=== PATIENT | male | born 1955 | race Caucasian/White ===

== ENCOUNTER 2018-05-02 12:17 | Observation (INO) ==
[2018-05-02] MEDS ORDERED: Sod Chloride 0.9% Inj 1,000 ML IV.SIG ONE (14:14)
[2018-05-02 14:45] LABS: Baso # (Auto) 0.1 th/mm3 (0.0-0.2); Baso % (Auto) 0.6 % (0.0-2.0); Eos # (Auto) 0.1 th/mm3 (0.0-0.4); Eos % (Auto) 0.8 % (0.0-4.0); Hematocrit 41.6 % (39.0-51.0); Lymph % (Auto) 9.4 % (9.0-44.0); Mean Corpuscular HGB Conc 33.6 % (32.0-36.0); Mean Corpuscular Hemoglobin 29.1 pg (27.0-34.0); Mean Corpuscular Volume 86.5 fL (80.0-100.0); Mean Platelet Volume 8.7 fL (7.0-11.0); Mono # (Auto) 0.5 th/mm3 (0.0-0.9); Mono % (Auto) 5.1 % (0.0-8.0); Neut # (Auto) 8.5 th/mm3 (1.8-7.7); Neut % (Auto) 84.1 % (16.0-70.0); Platelet Count 224 th/mm3 (150-450); Red Blood Count 4.81 mil/mm3 (4.50-5.90); Red Cell Distribution Width 14.2 % (11.6-17.2); White Blood Count 10.1 th/mm3 (4.0-11.0)
[2018-05-02 15:03] LABS: Alanine Aminotransferase 18 U/L (12-78); Albumin 4.6 g/dL (3.4-5.0); Anion Gap 10 meq/L (5-15); Aspartate Aminotransferase 16 U/L (15-37); Blood Urea Nitrogen 11 mg/dL (7-18); Carbon Dioxide 28.2 meq/L (21.0-32.0); Chloride 106 meq/L (98-107); Glomerular Filtration Rate 77 mL/min (>89); Glucose,Random 90 mg/dL (74-106); Potassium 3.9 meq/L (3.5-5.1); Sodium 144 meq/L (136-145)
[2018-05-02 15:07] LABS: Alkaline Phosphatase 76 U/L (45-117); Total Protein 8.1 g/dL (6.4-8.2)
--- NOTE | 2018-05-02 15:09 | CT ---
EXAM DATE: 05/02/2018 2:19 PM EDT AGE/SEX: 63 years / Male INDICATIONS: Fell from a ladder about four feet syncope after fall CLINICAL DATA: This is the patient's initial encounter. Patient reports that signs and symptoms have been present for 1 day and indicates a pain score of 5/10. MEDICAL/SURGICAL HISTORY: Cardiovascular disease. Coronary artery stent. RADIATION DOSE: 34.35 CTDI (mGy) COMPARISON: No prior exams available for comparison. TECHNIQUE: CT of the head without contrast. Using automated exposure control and adjustment of the mA and/or kV according to patient size, radiation dose was kept as low as reasonably achievable to ob tain optimal diagnostic quality images. DICOM format image data is available electronically for revi ew and comparison. FINDINGS: Cerebrum: The ventricles are normal for age. No evidence of midline shift, mass lesion, hemorrhage or acute infarction. No extraaxial fluid collections are seen. Posterior Fossa: The cerebellum and brainstem are intact. The 4th ventricle is midline. The cerebe llopontine angle is unremarkable. Extracranial: The visualized portion of the orbits is intact. Skull: The calvaria is intact. No evidence of skull fracture. CONCLUSION: 1. Negative noncontrast trauma CT. . Electronically signed by: Sal Cordero MD 05/02/2018 3:08 PM EDT
[2018-05-02 15:10] LABS: Activated Partial Thrombo Time 22.5 sec (24.3-30.1); INR 1.1 Ratio
--- NOTE | 2018-05-02 15:15 | CT ---
EXAM DATE: 05/02/2018 2:40 PM EDT AGE/SEX: 63 years / Male INDICATIONS: Fall from ladder syncope after fall CLINICAL DATA: This is the patient's initial encounter. Patient reports that signs and symptoms have been present for 1 day and indicates a pain score of 5/10. MEDICAL/SURGICAL HISTORY: Cardiovascular disease. Coronary artery stent. RADIATION DOSE: 24.67 CTDI (mGy) COMPARISON: No prior exams available for comparison. TECHNIQUE: Contiguous axial images were obtained using helical multirow detector technique. The vol umetric data was post-processed with multiplanar reconstruction in oblique axial, sagittal, and coron al planes. Using automated exposure control and adjustment of the mA and/or kV according to patient s ize, radiation dose was kept as low as reasonably achievable to obtain optimal diagnostic quality giovanni ges. DICOM format image data is available electronically for review and comparison. FINDINGS: No acute fracture or prevertebral soft tissue swelling is noted. Mild cervical spondylosis is noted a t all levels. Mild bilateral foraminal narrowing is noted from C2 through C7. No spinal stenosis is n oted. C2-3: The bony spinal canal is normal in size. No evidence of disc bulge or herniation. Mild bilate ral foraminal narrowing is noted. C3-4: The bony spinal canal is normal in size. No evidence of disc bulge or herniation. Mild bilate ral foraminal narrowing is noted. C4-5: The bony spinal canal is normal in size. No evidence of disc bulge or herniation. Mild bilate ral foraminal narrowing is noted. C5-6: The bony spinal canal is normal in size. No evidence of disc bulge or herniation. Mild bilate ral foraminal narrowing is noted. C6-7: The bony spinal canal is normal in size. No evidence of disc bulge or herniation. Mild bilate ral foraminal narrowing is noted. C7-T1: The bony spinal canal is normal in size. No evidence of disc bulge or herniation. The neura l foramina are bilaterally patent. CONCLUSION: 1. No acute fracture or prevertebral soft tissue swelling. 2. Mild bilateral foraminal narrowing from C2 through C7. Electronically signed by: Rodriguez Yeager MD 05/02/2018 3:14 PM EDT
--- NOTE | 2018-05-02 15:32 | ED ---
HPI General Chief Complaint: Syncope Stated Complaint: fall,right wrist pain Time Seen by Provider: 05/02/18 14:09 Source: patient and family Mode of arrival: ambulatory Limitations: no limitations History of Present Illness HPI narrative: Patient is a 63-year-old male that presents for the evaluation of fall and syncopal episode that occurred today. The patient states that he was doing some yard work earlier today and he was using a 6 foot ladder to trim trees. The patient states that the ladder suddenly became unstable and he and the ladder fell over. The patient states that he fell on top of the ladder. The patient currently reports pain in both his right wrist and lower back. The patient states that his current pain level in his right wrist is a 6/10 on a pain scale. He states that the wrist is becoming swollen and more painful than when he initially injured it. He currently rates his low back pain a 5/10 on a pain scale. The patient's family is present in the room. The patient's daughter states that the patient had a syncopal episode as he was walking back into the house. The patient's daughter states that their neighbor witnessed the syncopal episode and reported that the patient was unresponsive for 1-1.5 minutes. The patient does not remember passing out but he does remember his fall from the ladder. The patient is not sure if he hit his head during the fall. Upon review of symptoms the patient reports fatigue and more yawing than usual. He denies chest pain, shortness of breath, dizziness, nausea, or vomiting. Related Data Home Medications Medication Instructions Recorded Confirmed aspirin [Aspir-81] 81 mg PO DAILY 05/02/18 05/02/18 Allergies Allergy/AdvReac Type Severity Reaction Status Date / Time No Known Allergies Allergy Unverified 05/02/18 14:16 Review of Systems ROS: all other systems reviewed are negative [facility] Medical History Medical History FH: total knee replacement (Acute) Surgical History Surgical History H/O heart artery stent (Acute) Family History Family History Other Hypertension Social History Social History Substance History: No History of Abuse Second Hand Smoke Exposure: No Smoking Status: Never smoker How Often Do You Have a Drink Containing Alcohol: Never Recent Travel in [facility] within the Last 8 Weeks: No Recent Out of Country Travel within the Last 8 Weeks: No Immunization History Tetanus Immunization: <5 Years Hx Influenza Vaccine This Season: No Exam Narrative Exam Narrative: GENERAL: Well appearing SKIN: Focused skin assessment warm/dry. HEAD: Atraumatic. Normocephalic. EYES: Pupils equal and round. No scleral icterus. No injection or drainage. ENT: No nasal bleeding or discharge. Mucous membranes pink and moist. Tongue is midline. No uvula deviation. NECK: Trachea midline. No JVD. CARDIOVASCULAR: Regular rate and rhythm. No murmur appreciated. RESPIRATORY: No accessory muscle use. Clear to auscultation. Breath sounds equal bilaterally. GASTROINTESTINAL: Abdomen soft, non-tender, nondistended. Hepatic and splenic margins not palpable. MUSCULOSKELETAL: No obvious deformities. No clubbing. No cyanosis. No edema. Full range of motion of the upper and lower extremities bilaterally. Patient does have obvious deformity to the right wrist. Tender to touch in this area. 2+ pulses in the radial and ulnar arteries. Able to move the hand and fingers bilaterally. No obvious lumbar, thoracic, cervical spine tenderness to palpation. Patient does have tenderness to palpation on the musculature of the right lower back. More on the buttocks than the actual spine. Able to move the legs fully and straight leg negative bilaterally. No obvious open sores. He does have what appears to be an abrasion to the posterior aspect of the right shoulder. NEUROLOGICAL: Awake and alert. No obvious cranial nerve deficits. Motor grossly within normal limits. Normal speech. PSYCHIATRIC: Appropriate mood and affect; insight and judgment normal. Course Initial Documented Vital Signs Temperature 97.9 F 05/02/18 12:21 Pulse Rate 52 L 05/02/18 12:21 Respiratory Rate 16 05/02/18 12:21 Blood Pressure 120/64 05/02/18 12:21 Pulse Oximetry 98 05/02/18 12:21 Last Documented Vital Signs Temperature 97.9 F 05/02/18 12:21 Pulse Rate 45 L 05/02/18 14:17 Respiratory Rate 18 05/02/18 14:17 Blood Pressure 128/72 05/02/18 14:17 Pulse Oximetry 100 05/02/18 14:17 Medical Decision Making WILFRIDO Attestation WILFRIDO supervised visit: Yes Attestation: I, Dr. Scott, have reviewed the advance practice practitioner's documentation and am in agreement, met with the patient face to face, made the diagnosis, and the medical decision making was done by me. *My assessment and Findings: [Patient is a 63-year-old male who presented to emergency room for evaluation of syncope and fall. patient was admitted to the hospital, I agree with mid-level evaluation and disposition.] MDM Narrative Medical decision making narrative: 63-year-old male the presents to the ED for evaluation of syncope and fall. Patient was properly examined and was found to have signs and symptoms concerning for syncope and fractures. Patient denies any his head on the initial fall. He did had a syncopal episode after the fall. Per patient he was up and he fell but he does not remember really what happened. No history of this in the past but he does have a history of stents in the past. Definetly concern for cardiac in nature. Labs and imaging were ordered. Labs and imaging were essentially unremarkable other than for what appears to be fracture of the right wrist. Unclear as to the syncopal episode but definitely concern. The recommend admission for further evaluation as patient has never had syncope workup in the past. Splint was placed on the wrist. Labs and imaging were essentially unremarkable other than stated above. Case discussed with family and patient agree with admission. Patient will be admitted for further evaluation of the syncope as patient is somewhat bradycardic. There is concern for cardiac disease. Patient agrees with this plan. Case discussed with Dr. Hearn who agrees admission to his service. Medical Screen Exam Complete: Yes Emergency Medical Condition: Yes Differential Diagnosis Differential Diagnosis: Syncope versus presyncope versus fall versus fracture versus head injury Medical Records Medical records reviewed: Yes I reviewed the patient's medical records. Lab Data Lab results reviewed: Yes I reviewed the patient's lab results. Lab results narrative: Troponin and CK-MB negative. Result diagrams: 05/02/18 14:30 05/02/18 14:30 Lab Results 05/02/18 05/02/18 05/02/18 Range/Units 14:30 14:30 14:30 WBC 10.1 (4.0-11.0) th/mm3 RBC 4.81 (4.50-5.90) mil/mm3 Hgb 14.0 (13.0-17.0) gm/dL Hct 41.6 (39.0-51.0) % MCV 86.5 (80.0-100.0) fL MCH 29.1 (27.0-34.0) pg MCHC 33.6 (32.0-36.0) % RDW 14.2 (11.6-17.2) % Plt Count 224 (150-450) th/mm3 MPV 8.7 (7.0-11.0) fL Neut % (Auto) 84.1 H (16.0-70.0) % Lymph % (Auto) 9.4 (9.0-44.0) % Meagher % (Auto) 5.1 (0.0-8.0) % Eos % (Auto) 0.8 (0.0-4.0) % Baso % (Auto) 0.6 (0.0-2.0) % Neut # (Auto) 8.5 H (1.8-7.7) th/mm3 Lymph # (Auto) 1.0 (1.0-4.8) th/mm3 Meagher # (Auto) 0.5 (0.0-0.9) th/mm3 Eos # (Auto) 0.1 (0.0-0.4) th/mm3 Baso # (Auto) 0.1 (0.0-0.2) th/mm3 WBC Differential . Differential Comment Auto diff final PT 11.0 (9.8-11.6) sec INR 1.1 Ratio APTT 22.5 L (24.3-30.1) sec Sodium 144 (136-145) meq/L Potassium 3.9 (3.5-5.1) meq/L Chloride 106 (98-107) meq/L Carbon Dioxide 28.2 (21.0-32.0) meq/L Anion Gap 10 (5-15) meq/L BUN 11 (7-18) mg/dL Creatinine 0.98 (0.60-1.30) mg/dL Estimated GFR 77 L (>89) mL/min Random Glucose 90 (74-106) mg/dL Calcium 9.0 (8.5-10.1) mg/dL Total Bilirubin 0.5 (0.2-1.0) mg/dL AST 16 (15-37) U/L ALT 18 (12-78) U/L Alkaline Phosphatase 76 (45-117) U/L Troponin I Less than 0.02 L (0.02-0.05) ng/mL Total Protein 8.1 (6.4-8.2) g/dL Albumin 4.6 (3.4-5.0) g/dL Imaging Data Attestation: I personally reviewed and interpreted this imaging study as follows : Radiologist's impression: Head CT 05/02/18 14:14 CONCLUSION: 1. Negative noncontrast trauma CT. . Hand X-Ray 05/02/18 14:15 CONCLUSION: 1. Mildly comminuted fracture the distal radius. 2. Widening of the scapholunate distance most characteristic with a scapholunate ligament tear. 3. Osteopenia and mild osteoarthritic changes. 4. Small metal foreign bodies adjacent to the third proximal phalanx and fourth middle phalanx. Wrist X-Ray 05/02/18 14:15 CONCLUSION: 1. Fracture of the distal radius. 2. Widening of the scapholunate distance consistent with scapholunate ligament tear. 3. Osteopenia and osteoarthritic change. Cervical Spine CT 05/02/18 14:27 CONCLUSION: 1. No acute fracture or prevertebral soft tissue swelling. 2. Mild bilateral foraminal narrowing from C2 through C7. Lumbar Spine CT 05/02/18 14:45 CONCLUSION: 1. Moderate spinal stenosis and bilateral foraminal narrowing at L4-5 and L3-4. 2. Mild spinal stenosis and bilateral foraminal narrowing at L2-3. 3. Mild bilateral foraminal narrowing at L5-S1 and L1-2 without spinal stenosis. 4. Grade I anterolisthesis of L4 in relation to L5. 5. No acute compression fracture. 6. Scoliosis is noted. ECG Data Attestation: I personally reviewed and interpreted this ECG as follows: Interpretation: EKG sure this sinus rhythm with no sign of acute ischemia but does show what appears to be bradycardia read by me and attending. No ST elevations. Discharge Plan Discharge Disposition Patient Disposition: 30 Still Patient Discharge Details Diagnosis: Syncope, Fracture of wrist, closed Physicians Team ED Provider: Heri Scott ED Midlevel Provider: Dony Chaves Primary Care Provider: Primary Care Physici,No Attending Provider: Mina Hearn Other Providers: John Sepulveda ; Polly Reyes Status ED Status: Left Department Discharge Information Discharge Date/Time: 05/02/18 18:00
--- NOTE | 2018-05-02 15:39 | XR ---
EXAM DATE: 05/02/2018 2:15 PM EDT AGE/SEX: 63 years / Male INDICATIONS: Right lateral hand pain after fall from ladder. CLINICAL DATA: This is the patient's initial encounter. Patient reports that signs and symptoms have been present for 1 day and indicates a pain score of 10/10. MEDICAL/SURGICAL HISTORY: None. None. COMPARISON: No prior exams available for comparison. FINDINGS: AP, lateral and oblique views of the right hand were obtained and demonstrate mildly comminuted fract ure deformity of the distal radius with buckling of the dorsal cortex. The distal ulna is intact. Car pus is intact with widening of the scapholunate distance to approximately 6 mm. There is mild osteope fish. There are degenerative changes throughout the carpus with mild sclerosis. There are metallic for eign bodies adjacent to the third proximal phalanx and fourth middle phalanx. There are mild degenera tive changes in the interphalangeal joints. CONCLUSION: 1. Mildly comminuted fracture the distal radius. 2. Widening of the scapholunate distance most characteristic with a scapholunate ligament tear. 3. Osteopenia and mild osteoarthritic changes. 4. Small metal foreign bodies adjacent to the third proximal phalanx and fourth middle phalanx. Electronically signed by: Sal Cordero MD 05/02/2018 3:37 PM EDT
--- NOTE | 2018-05-02 15:40 | XR ---
EXAM DATE: 05/02/2018 2:15 PM EDT AGE/SEX: 63 years / Male INDICATIONS: Right lateral wrist pain after fall from ladder. CLINICAL DATA: This is the patient's initial encounter. Patient reports that signs and symptoms have been present for 1 day and indicates a pain score of 10/10. MEDICAL/SURGICAL HISTORY: None. None. [place] [facility] 3[place]. . FINDINGS: Multiple views of the right wrist were obtained and again demonstrate the mildly comminuted fracture deformity of the distal radius with buckling of the dorsal cortex. The distal ulna is intact. There i s widening of the scapholunate distance to approximately 6 mm. There is diffuse osteopenia and mild d egenerative changes in the carpus. There is mild soft tissue swelling over the distal radius. There i s mild osteopenia. CONCLUSION: 1. Fracture of the distal radius. 2. Widening of the scapholunate distance consistent with scapholunate ligament tear. 3. Osteopenia and osteoarthritic change. Electronically signed by: Sal Cordero MD 05/02/2018 3:39 PM EDT
--- NOTE | 2018-05-02 15:42 | CT ---
EXAM DATE: 05/02/2018 2:46 PM EDT AGE/SEX: 63 years / Male INDICATIONS: Fall from ladder Back pain CLINICAL DATA: This is the patient's initial encounter. Patient reports that signs and symptoms have been present for 1 day and indicates a pain score of 5/10. MEDICAL/SURGICAL HISTORY: Cardiovascular disease. Coronary artery stent. RADIATION DOSE: 35.86 CTDI (mGy) COMPARISON: [facility] – [place], [place] CERVICAL SPINE W/O CONTRAST, 05/02/2018. . TECHNIQUE: Contiguous axial images were acquired with a multirow detector CT scanner without contras t. Multiplanar reconstructions in the sagittal and coronal plane were also performed. Using automate d exposure control and adjustment of the mA and/or kV according to patient size, radiation dose was k ept as low as reasonably achievable to obtain optimal diagnostic quality images. DICOM format image data is available electronically for review and comparison. FINDINGS: Vertebrae: Normal vertebral body height. No acute compression fracture is noted. Alignment: Grade I anterolisthesis of L4 in relation to L5 is noted. Mild scoliosis is noted. T12-L1: The thecal sac has a normal diameter. No evidence of disc bulge or protrusion. The neural foramina are patent bilaterally. L1-L2: Mild diffuse disc bulge is noted and results in mild bilateral foraminal narrowing but no spi nal stenosis. No focal disc herniation is noted. L2-L3: Mild circumferential spinal stenosis and bilateral foraminal narrowing is noted secondary to diffuse disc bulge, facet joint hypertrophy and ligamentous laxity. No focal disc herniation is noted . L3-L4: Moderate circumferential spinal stenosis and bilateral foraminal narrowing is noted secondary to diffuse disc bulge, facet joint hypertrophy and ligamentous laxity. No focal disc herniation is n oted. L4-L5: Moderate circumferential spinal stenosis and bilateral foraminal narrowing is noted secondary to diffuse disc bulge, grade I anterolisthesis of L4 in relation to L5, facet joint hypertrophy and ligamentous laxity. No focal disc herniation is noted. L5-S1: Mild diffuse disc bulge results in mild bilateral foraminal narrowing but no spinal stenosis. No focal disc herniation is noted. CONCLUSION: 1. Moderate spinal stenosis and bilateral foraminal narrowing at L4-5 and L3-4. 2. Mild spinal stenosis and bilateral foraminal narrowing at L2-3. 3. Mild bilateral foraminal narrowing at L5-S1 and L1-2 without spinal stenosis. 4. Grade I anterolisthesis of L4 in relation to L5. 5. No acute compression fracture. 6. Scoliosis is noted. Electronically signed by: Rodriguez Yeager MD 05/02/2018 3:41 PM EDT
[2018-05-02] MEDS ORDERED: Acetaminophen 325 MG Tablet PO PRN (17:05)
[2018-05-02] MEDS ORDERED: Ibuprofen 600 MG Tablet PO PRN (17:21)
--- NOTE | 2018-05-02 17:21 | P.HP ---
History of Present Illness Primary Care Physician: No Primary Care Physician History of Present Illness: 63-year-old male with a history of coronary artery disease with 2 stents placed presents to the ER following a fall from a 5 foot ladder resulting in a right wrist fracture. He says he was working outside today when one leg of his ladder tipped into soft sound on the side of the sidewalk resulting in him being tipped over on top of the ladder. He denies any head trauma. He fell onto his right wrist, shoulder, back. He had immediate pain in his right wrist and had a grossly visible defect with angulation but no disruption of his skin. ER workup regarding his back pain revealed only degenerative changes but no fractures.. Following the fall he had dizziness followed by unconsciousness for approximately 1.5 minutes according to his family. In the ER he has demonstrated bradycardia with heart rate dipping into the mid 40s. He denies any prior knowledge of bradycardia. Aside from stents placed he has no follow- up with cardiology. He denies any recent illness, denies fevers, denies cough. He denies any nausea, vomiting or dehydration, denies diarrhea. Review of Systems All other systems reviewed negative except as stated in HPI PMFSH - History History Provided By: Patient - Medical History Medical History: Medical History (Last Reviewed 05/02/18 @ 16:11 by JOHN Rodriguez) FH: total knee replacement - Surgical History Surgical History: Surgical History (Last Reviewed 05/02/18 @ 16:11 by JOHN Rodriguez) H/O heart artery stent - Tobacco History Second Hand Smoke Exposure: No Smoking Status: Former smoker - Alcohol History How Often Do You Have a Drink Containing Alcohol: Monthly or less - Substance Use History Substance History: No History of Abuse - Travel History Recent Travel in the [place] Within the Last 8 Weeks: No Recent Travel Out of the Country Within the Last 8 Weeks: No - Immunization History Tetanus Immunization: <5 Years Hx Influenza Vaccine This Season: No Medications and Allergies Active Medications: Active Medications Acetaminophen (Tylenol) 650 mg PO Q4H PRN PRN Reason: Temp > 100.4 Al Hydroxide/Mg Hydroxide (Milk Of Magnesia Liq) 30 ml PO Q12H PRN PRN Reason: Mild Constipation Ondansetron HCl (Zofran Inj) 4 mg IV.PUSH Q6H PRN PRN Reason: NAUSEA OR VOMITING Allergies Allergy/AdvReac Type Severity Reaction Status Date / Time No Known Allergies Allergy Unverified 05/02/18 14:16 Home Medications Medication Instructions Recorded Confirmed Type aspirin [Aspir-81] 81 mg PO DAILY 05/02/18 05/02/18 History Exam Vital signs: Vital Signs 05/02/18 12:21 05/02/18 14:17 Temperature 97.9 F Pulse Rate 52 L 45 L Respiratory Rate 16 18 Blood Pressure 120/64 128/72 Pulse Oximetry 98 100 Intake & Output 05/01/18 05/02/18 05/02/18 18:59 06:59 18:59 Intake Total 1000 / 1000 Balance 1000 / 1000 Weight 92.079 kg Intake: IV 1000 / 1000 NS Inj 1,000 ML @ Wide Open IV. 1000 / 1000 SIG BOLUS ONE Rx#:[id number] Narrative: GENERAL: AAOx3, no acute distress, adequate nutrition SKIN: Warm and dry, no rashes. HEAD: Atraumatic. Normocephalic. EYES: Pupils equal, round, reactive to light. No scleral icterus. No injection or drainage. ENT: No nasal bleeding or discharge. Moist mucous membranes. Nonerythematous oropharynx. NECK: Trachea midline. No JVD. Thyroid size within normal limits. CARDIOVASCULAR: Regular rate and rhythm. No murmur, no gallops, no rubs. RESPIRATORY: Clear and equal to auscultation bilaterally. No crackles, no wheezes. No accessory muscle use. GASTROINTESTINAL: Abdomen soft, non-tender, nondistended, normal active bowel sounds. Hepatic and splenic margins not palpable. MUSCULOSKELETAL: Gross deformity of right wrist with evident bruising and moderate swan-neck deformity of distal arm just proximal to the wrist NEUROLOGICAL: Awake and alert. No obvious cranial nerve deficits. Motor grossly within normal limits. No focal deficits. Five out of 5 muscle strength in the arms and legs. Normal speech. PSYCHIATRIC: Appropriate mood and affect; insight and judgment normal. Results - Labs CBC & Chem 7: 05/02/18 14:30 05/02/18 14:30 Labs: Laboratory Results - last 24 hr 05/02/18 05/02/18 05/02/18 14:30 14:30 14:30 WBC 10.1 RBC 4.81 Hgb 14.0 Hct 41.6 MCV 86.5 MCH 29.1 MCHC 33.6 RDW 14.2 Plt Count 224 MPV 8.7 Neut % (Auto) 84.1 H Lymph % (Auto) 9.4 [place] % (Auto) 5.1 Eos % (Auto) 0.8 Baso % (Auto) 0.6 Neut # (Auto) 8.5 H Lymph # (Auto) 1.0 [place] # (Auto) 0.5 Eos # (Auto) 0.1 Baso # (Auto) 0.1 WBC Differential . Differential Comment Auto diff final PT 11.0 INR 1.1 APTT 22.5 L Sodium 144 Potassium 3.9 Chloride 106 Carbon Dioxide 28.2 Anion Gap 10 BUN 11 Creatinine 0.98 Estimated GFR 77 L Random Glucose 90 Calcium 9.0 Total Bilirubin 0.5 AST 16 ALT 18 Alkaline Phosphatase 76 Troponin I Less than 0.02 L Total Protein 8.1 Albumin 4.6 - Imaging Impressions Head CT 05/02/18 14:14 CONCLUSION: 1. Negative noncontrast trauma CT. . Hand X-Ray 05/02/18 14:15 CONCLUSION: 1. Mildly comminuted fracture the distal radius. 2. Widening of the scapholunate distance most characteristic with a scapholunate ligament tear. 3. Osteopenia and mild osteoarthritic changes. 4. Small metal foreign bodies adjacent to the third proximal phalanx and fourth middle phalanx. Wrist X-Ray 05/02/18 14:15 CONCLUSION: 1. Fracture of the distal radius. 2. Widening of the scapholunate distance consistent with scapholunate ligament tear. 3. Osteopenia and osteoarthritic change. Cervical Spine CT 05/02/18 14:27 CONCLUSION: 1. No acute fracture or prevertebral soft tissue swelling. 2. Mild bilateral foraminal narrowing from C2 through C7. Lumbar Spine CT 05/02/18 14:45 CONCLUSION: 1. Moderate spinal stenosis and bilateral foraminal narrowing at L4-5 and L3-4. 2. Mild spinal stenosis and bilateral foraminal narrowing at L2-3. 3. Mild bilateral foraminal narrowing at L5-S1 and L1-2 without spinal stenosis. 4. Grade I anterolisthesis of L4 in relation to L5. 5. No acute compression fracture. 6. Scoliosis is noted. Caprini VTE Risk Assessment Caprini VTE Risk Assessment: No/Low Risk (score <= 1) Caprini Risk Assessment Model: Point Value = 1 Point Value = 2 Point Value = 3 Point Value = 5 Age 41-60 Minor surgery BMI > 25 kg/m2 Swollen legs Varicose veins or History of unexplained or recurrent spontaneous Oral contraceptives or hormone replacement Sepsis (< 1 month) Serious lung disease, including pneumonia (< 1 month) Abnormal pulmonary function Acute myocardial infarction Congestive heart failure (< 1 month) History of inflammatory bowel disease Medical patient at bed rest Age 61-74 Arthroscopic surgery Major open surgery (> 45 min) Laparoscopic surgery (> 45 min) Malignancy Confined to bed (> 72 hours) Immobilizing plaster cast Central venous access Age >= 75 History of VTE Family history of VTE Factor V Leiden Prothrombin [id number] Lupus anticoagulant Anticardiolipin antibodies Elevated serum homocysteine Heparin-induced thrombocytopenia Other congenital or acquired thrombophilia Stroke (< 1 month) Elective arthroplasty Hip, pelvis, or leg fracture Acute spinal cord injury (< 1 month) Prophylaxis Regimen: Total Risk Factor Score Risk Level Prophylaxis Regimen 0-1 Low Early ambulation 2 Moderate Order ONE of the following: *Sequential Compression Device (SCD) *Heparin 5000 units SQ BID 3-4 Higher Order ONE of the following medications: *Heparin 5000 units SQ TID *Enoxaparin/Lovenox 40 mg SQ daily (WT < 150 kg, CrCl > 30 mL/min) *Enoxaparin/Lovenox 30 mg SQ daily (WT < 150 kg, CrCl > 10-29 mL/min) *Enoxaparin/Lovenox 30 mg SQ BID (WT < 150 kg, CrCl > 30 mL/min) AND/OR *Sequential Compression Device (SCD) 5 or more Highest Order ONE of the following medications: *Heparin 5000 units SQ TID (Preferred with Epidurals) *Enoxaparin/Lovenox 40 mg SQ daily (WT < 150 kg, CrCl > 30 mL/min) *Enoxaparin/Lovenox 30 mg SQ daily (WT < 150 kg, CrCl > 10-29 mL/min) *Enoxaparin/Lovenox 30 mg SQ BID (WT < 150 kg, CrCl > 30 mL/min) AND *Sequential Compression Device (SCD) Assessment and Plan - Plan Syncopal episode w/ bradycardia Patient denies any head trauma, syncopal episode occurred after his fall, not before He has no knowledge of bradycardia, denies a history of this Syncopal workup to include carotid ultrasound of the neck, 2D echocardiogram, follow on telemetry Cardiology consulted to assist with bradycardia workup Right wrist fracture Ecchymosis grossly with some moderate angulation X-ray demonstrates a distal comminuted radial fracture Also a likely tear of these scapholunate ligament Orthopedics consulted to assist with casting and follow-up h/o CAD Patient has a history of 2 stents placed, found in preop screening, no history of [place] DVT prophylaxis SCDs, chemoprophylaxis held due to ecchymosis of right wrist and fracture with angulation
--- NOTE | 2018-05-02 20:05 | US ---
EXAM DATE: 05/02/2018 12:00 AM EDT AGE/SEX: 63 years / Male INDICATIONS: Syncope. CLINICAL DATA: This is the patient's initial encounter. Patient reports that signs and symptoms have been present for 1 day and indicates a pain score of 0/10. MEDICAL/SURGICAL HISTORY: . Syncope. . Total knee replacement. Heart artery stent. COMPARISON: No prior exams available for comparison. VELOCITY PARAMETERS: ICA/CCA Ratio: Right 1.2 , Left 1.0 ICA: Right 125 cm/sec, Left 128 cm/sec CCA: Right 105 cm/sec, Left 131 cm/sec ECA: Right 134 cm/sec, Left 173 cm/sec Vertebral: Right 74.7 cm/sec antegrade, Left 66.1 cm/sec antegrade FINDINGS: Right Carotid: Minimal arteriosclerotic plaque is visualized of the bulb and proximal internal carot id artery.The waveforms are within normal limits. Left Carotid: Minimal arteriosclerotic plaque is visualized of the bulb and proximal internal caroti d artery. The waveforms are within normal limits. Other: None. CONCLUSION: 1. Right Internal Carotid Artery: No significant plaque or narrowing 2. Left Internal Carotid Artery: No significant plaque or narrowing. Electronically signed by: Bg Flores MD 05/02/2018 8:04 PM EDT
--- NOTE | 2018-05-02 22:07 | MB ---
cc: John Sepulveda Samuel MD DATE: 05/02/2018 PHYSICIAN REQUESTING CONSULTATION: Mina Hearn MD REASON FOR CONSULTATION: Syncope, bradycardia. HISTORY OF PRESENT ILLNESS: The patient is a very pleasant 63-year-old gentleman with a history of coronary artery disease with prior PCI with DENISE to the RCA and LAD on 12/24/2014 by a nurse liaison in [place] who he has not seen in the past 2 years, bilateral knee replacements and otherwise healthy with no other medical conditions by report. Apparently, he was trimming a tree on a ladder earlier today and the ladder fell, causing the patient to fall and hit the ground. The patient apparently denied any head trauma, but fell on his right wrist, shoulder and back and had immediate pain in his right wrist and a grossly visible defect with angulation, but no disruption of the skin. The patient got up and walked a few yards and then had a syncopal event that was witnessed by the patient's neighbor. Apparently, he lost consciousness for about 2 minutes, according to his daughter at the bedside. The patient was evaluated in the ER and noted to have sinus bradycardia with heart rate in the mid 40s to low 50s. The patient underwent a radiographic trauma evaluation with x-rays of his right hand and right wrist, cervical and lumbar spinal CT as well as a head CT. No acute intracranial hemorrhage. He did sustain a fracture of the distal radius with widening of the scapholunate distance consistent with a scapholunate ligament tear. EKG shows sinus rhythm with no acute ST-T wave abnormalities. The patient is currently undergoing a carotid duplex ultrasound at the time of evaluation. He is conversant and reports having a throbbing sensation in the right wrist and hand, but otherwise minimal pain. A little bit of discomfort in his back. He denies any recent chest pain, palpitations, lightheadedness, dizziness or syncope preceding his fall from the ladder. No PND, orthopnea or exercise capacity limitations. The patient is very active at baseline and exercises at a gym 6 days per week and is able to negotiate 10 flights of stairs without any cardiopulmonary symptoms, which he routinely does for exercise. LABORATORY DATA: WBC 10.1, hemoglobin 14.0, platelet count 224. INR 1.1. Sodium 144, potassium 3.9, BUN 11, creatinine 0.98, AST 16, ALT 18, alkaline phosphatase 76. Troponin 0.02 MEDICATIONS: Aspirin 81 mg daily. SOCIAL HISTORY: He quit smoking approximately 5 years ago. He is a nondrinker and is very active at baseline, as noted in the HPI. FAMILY HISTORY: No premature CAD, CVD or sudden cardiac . PHYSICAL EXAMINATION: VITAL SIGNS: Pulse 52, BP 128/72, oxygen saturation 100% on room air, respirations 18. GENERAL: A and O x 3, pleasant, comfortable appearing, sitting upright, speaking in full sentences. HEENT: Benign. NECK: Supple. No elevation in JVP. CHEST: Clear to auscultation bilaterally. CARDIOVASCULAR: Bradycardic, regular. Positive S1, S2. No significant murmurs. ABDOMEN: Soft, nontender. Positive bowel sounds. EXTREMITIES: No edema. Warm and well perfused. ASSESSMENT: 1. Syncope. I suspect this is a vasovagal type syncope due to pain that he experienced with the noted right radial fracture after his mechanical fall. His electrocardiogram is nonischemic and has no evidence of conduction disease. He has sinus bradycardia on telemetry, which we will continue to monitor. 2. Bradycardia. Possibly vaguely induced due to elevated vagal tone in a setting of acute pain. Continue to monitor telemetry. 3. Mechanical fall with right radial fracture. 4. History of coronary artery disease, status post percutaneous coronary intervention to the right coronary artery and left anterior descending on 12/24/2014. Currently, CCS class 0, asymptomatic. RECOMMENDATIONS: 1. Continue to monitor on telemetry. No evidence of heart block or conduction disease at this time. 2. Continue aspirin 81 mg daily. 3. I have recommended that he should have been on statin therapy with his history of atherosclerotic heart disease, which he claims he was on atorvastatin, which he self discontinued. He has not seen cardiology in the past 2 years and I strongly recommended that he reestablish care with a nurse liaison. 4. Potential need for preoperative cardiovascular risk assessment prior to undergoing noncardiac surgery. The patient represents an intermediate risk patient for an intermediate risk procedure with good exercise capacity and currently would not be a candidate for perioperative beta sallie therapy due to his resting bradycardia. If surgery is indicated for his radial fracture, he may proceed following a discussion of informed consent with his surgeon. No further cardiovascular studies are required prior to the procedure if needed. We will sign off for now. Please contact with any further questions. DO Murray Sunshine , 07:45 PM , 07:58 PM
--- NOTE | 2018-05-02 22:19 | ECG ---
Date Performed: 05/02/2018 Time Performed: 12:39:30 PTAGE: 63 years EKG: SINUS BRADYCARDIA BORDERLINE ECG NO PREVIOUS TRACING DOCTOR: Macario Gatica Interpretating Date/Time 05/02/2018 22:17:52
[2018-05-03 07:30] VITALS: BP 104/66; RESP 12; TEMP 97.6; O2SAT 96
[2018-05-03 11:23] VITALS: PULSE 46
--- NOTE | 2018-05-03 12:47 | P.PN ---
Subjective Interval history: Follow up for fall, syncope. Patient is doing well. No acute concerns. He is ambulating well, no dizziness, lightheadedness. No fever, chills. Daughter at bedside. Patient wants to go home. Physical Exam Vital signs: Vital Signs 05/02/18 14:17 05/03/18 00:00 05/03/18 04:00 Temperature 98.5 F 98.0 F Pulse Rate 45 L 55 L 48 L Respiratory Rate 18 16 17 Blood Pressure 128/72 95/51 L 115/58 L Pulse Oximetry 100 96 95 05/03/18 07:27 05/03/18 08:00 05/03/18 09:00 Temperature 97.6 F Pulse Rate 47 L 46 L Respiratory Rate 12 Blood Pressure 104/66 Pulse Oximetry 96 96 Intake & Output 05/02/18 05/03/18 05/03/18 18:59 06:59 18:59 Intake Total 1000 / 1000 850 / 850 Balance 1000 / 1000 850 / 850 Weight 92.079 kg Intake: IV 1000 / 1000 NS Inj 1,000 ML @ Wide Open IV. 1000 / 1000 SIG BOLUS ONE Rx#:[id number] Oral 850 / 850 Other: # Voids 3 Narrative: GENERAL: Alert, oriented x 3, NAD. SKIN: Warm and dry. HEAD: Normocephalic. EYES: No scleral icterus. No injection or drainage. NECK: Supple, trachea midline. No JVD or lymphadenopathy. CARDIOVASCULAR: Regular rhythm, bradycardic without murmurs, gallops, or rubs. RESPIRATORY: Breath sounds equal bilaterally. No accessory muscle use. GASTROINTESTINAL: Abdomen soft, non-tender, nondistended. MUSCULOSKELETAL: No cyanosis, or edema. Right wrist fracture, cast in place. BACK: Nontender without obvious deformity. No CVA tenderness. Results - Labs CBC & Chem 7: 05/02/18 14:30 05/02/18 14:30 Laboratory Results - last 24 hr 05/02/18 05/02/18 05/02/18 14:30 14:30 14:30 WBC 10.1 RBC 4.81 Hgb 14.0 Hct 41.6 MCV 86.5 MCH 29.1 MCHC 33.6 RDW 14.2 Plt Count 224 MPV 8.7 Neut % (Auto) 84.1 H Lymph % (Auto) 9.4 [place] % (Auto) 5.1 Eos % (Auto) 0.8 Baso % (Auto) 0.6 Neut # (Auto) 8.5 H Lymph # (Auto) 1.0 [place] # (Auto) 0.5 Eos # (Auto) 0.1 Baso # (Auto) 0.1 WBC Differential . Differential Comment Auto diff final PT 11.0 INR 1.1 APTT 22.5 L Sodium 144 Potassium 3.9 Chloride 106 Carbon Dioxide 28.2 Anion Gap 10 BUN 11 Creatinine 0.98 Estimated GFR 77 L Random Glucose 90 Calcium 9.0 Total Bilirubin 0.5 AST 16 ALT 18 Alkaline Phosphatase 76 Troponin I Less than 0.02 L Total Protein 8.1 Albumin 4.6 - Imaging Impressions Carotid Doppler Study 05/02/18 00:00 CONCLUSION: 1. Right Internal Carotid Artery: No significant plaque or narrowing 2. Left Internal Carotid Artery: No significant plaque or narrowing. Head CT 05/02/18 14:14 CONCLUSION: 1. Negative noncontrast trauma CT. . Hand X-Ray 05/02/18 14:15 CONCLUSION: 1. Mildly comminuted fracture the distal radius. 2. Widening of the scapholunate distance most characteristic with a scapholunate ligament tear. 3. Osteopenia and mild osteoarthritic changes. 4. Small metal foreign bodies adjacent to the third proximal phalanx and fourth middle phalanx. Wrist X-Ray 05/02/18 14:15 CONCLUSION: 1. Fracture of the distal radius. 2. Widening of the scapholunate distance consistent with scapholunate ligament tear. 3. Osteopenia and osteoarthritic change. Cervical Spine CT 05/02/18 14:27 CONCLUSION: 1. No acute fracture or prevertebral soft tissue swelling. 2. Mild bilateral foraminal narrowing from C2 through C7. Lumbar Spine CT 05/02/18 14:45 CONCLUSION: 1. Moderate spinal stenosis and bilateral foraminal narrowing at L4-5 and L3-4. 2. Mild spinal stenosis and bilateral foraminal narrowing at L2-3. 3. Mild bilateral foraminal narrowing at L5-S1 and L1-2 without spinal stenosis. 4. Grade I anterolisthesis of L4 in relation to L5. 5. No acute compression fracture. 6. Scoliosis is noted. - Procedures Echo Mildly dilated left ventricle. Wall thickness is measured at the upper limits of normal. The left ventricular systolic function is low normal with an estimated ejection fraction in the range of 50- 55%. The left atrial size is [id number] dilated. The right atrial size is [id number] dilated. Mild mitral valve regurgitation. Aortic valve sclerosis is present. Trace aortic valve regurgitation. There is mild tricuspid valve regurgitation. The estimated pulmonary arterial pressure is 41.6 mmHg. Assessment and Plan - Plan Mr. López is a pleasant 63 year old male who was admitted to the hospital after a fall where he sustained a right wrist fracture. He also had a syncopal episode following this fall. He was found to be bradycardic but patient reports this is not new for him. Fall Syncope Right wrist fracture - Cast in place. Pt will follow up with orthopedic surgery - Echo did not identify any etiology. Carotid US neg for acute findings. Asymptomatic bradycardia - Heart rate in the 40s and 50s. No symptoms - Avoid beta sallie or CCB - Cardiology evaluated patient. No further work up - Echo done. Full code. Ambulation Discharge patient to home Condition on discharge: Improved Regular Diet as tolerated Ad Claire activity Rx written: Continue Aspirin 81mg Qday. Follow-up with primary care physician PRN. Cardiology as needed.
--- NOTE | 2018-05-03 15:12 | ECHRPT ---
Indication: SYNCOPE CONCLUSIONS Mildly dilated left ventricle. Wall thickness is measured at the upper limits of normal. The left ventricular systolic function is low normal with an estimated ejection fraction in the rang e of 50- 55%. The left atrial size is [id number]-[id number] dilated. The right atrial size is [id number]-[id number] dilated. Mild mitral valve regurgitation. Aortic valve sclerosis is present. Trace aortic valve regurgitation. There is mild tricuspid valve regurgitation. The estimated pulmonary arterial pressure is 41.6 mmHg. BP: / HR: Rhythm: Sinus MEASUREMENTS (Male / Female) Normal Values Technical Quality:Fair 2D ECHO LV Diastolic Diameter PLAX 6.3 cm 4.2 - 5.9 / 3.9 - 5.3 cm LV Systolic Diameter PLAX 4.9 cm IVS Diastolic Thickness 1.0 cm 0.6 - 1.0 / 0.6 - 0.9 cm LVPW Diastolic Thickness 1.0 cm 0.6 - 1.0 / 0.6 - 0.9 cm LV Relative Wall Thickness 0.3 RV Internal Dim ED PLAX 2.2 cm LVOT Diameter 2.2 cm Aortic Root Diameter 3.0 cm LA Systolic Diameter LX 5.0 cm 3.0 - 4.0 / 2.7 - 3.8 cm DOPPLER AV Peak Velocity 175.0 cm/s AV Peak Gradient 12.3 mmHg AV Mean Gradient 6.0 mmHg AV Velocity Time Integral 38.1 cm LVOT Peak Velocity 120.0 cm/s LVOT Peak Gradient 5.8 mmHg LVOT Velocity Time Integral 26.2 cm AV Area Cont Eq vti 2.6 cm AV Area Cont Eq pk 2.6 cm Mitral E Point Velocity 63.7 cm/s Mitral A Point Velocity 42.4 cm/s Mitral E to A Ratio 1.5 LV E' Lateral Velocity 12.6 cm/s Mitral E to LV E' Lateral Ratio 5.1 LV E' Septal Velocity 9.8 cm/s Mitral E to LV E' Septal Ratio 6.5 TR Peak Velocity 281.0 cm/s TR Peak Gradient 32.0 mmHg Right Atrial Pressure 10.0 mmHg Pulmonary Artery Systolic Pressu 41.6 mmHg Right Ventricular Systolic Press 41.6 mmHg PV Peak Velocity 75.2 cm/s PV Peak Gradient 2.3 mmHg FINDINGS LEFT VENTRICLE Mildly dilated left ventricle. Wall thickness is measured at the upper limits of normal. The left ventricular systolic function is low normal with an estimated ejection fraction in the rang e of 50- 55%. RIGHT VENTRICLE Normal right ventricular size and systolic function. LEFT ATRIUM The left atrial size is [id number]-oy-yjgowkfj dilated. RIGHT ATRIUM The right atrial size is [id number]-da-kurjwbmnkc dilated. ATRIAL SEPTUM No atrial level shunt is demonstrated by color flow Doppler interrogation. AORTA The aortic root and proximal ascending aorta are not well visualized. MITRAL VALVE Mild mitral valve regurgitation. AORTIC VALVE Aortic valve sclerosis is present. Trace aortic valve regurgitation. TRICUSPID VALVE There is mild tricuspid valve regurgitation. The estimated pulmonary arterial pressure is 41.6 mmHg. PULMONARY VALVE No pulmonary valve regurgitation or stenosis. VESSELS The inferior vena cava is normal in size. PERICARDIUM No pericardial effusion. Robby Sy MD, FACC, [facility] [place] (Electronically Signed) Final Date:03 May 2018 15:11
== END 2018-05-03 13:37 | disposition home or self-care (01) ==
LOC: NEPC 12:17 → NEDA 12:17 → NEPHCDU 18:00
PROVIDERS: ADMIT Hospitalist; ATTEND Hospitalist